=== PATIENT | female | born 1930 | race Caucasian/White ===

== ENCOUNTER 2017-11-12 20:12 | Emergency (ER) | payer MEDICARE, BC ==
[~2017-11-12] VITALS: Ht 154.9 cm; Wt 59.1 kg
[2017-11-12 20:16] VITALS: TEMP 97.5
[2017-11-12 20:41] LABS: BASO # 0.1 (0.0-0.2); EOS # 0.6 (0.0-0.7); EOS % 5.8 % (0-4.0); GRAN # 4.7 (1.4-6.5); GRAN % 42.7 % (42.2-75.2); HEMATOCRIT 43.4 % (37.0-47.0); HEMOGLOBIN 15.2 g/dl (12.5-16.0); LYMPH # 4.2 (1.2-3.4); LYMPH % 37.9 % (20.0-51.0); MEAN CELL VOLUME 95 fl (80.0-100.0); MEAN CORPUSCULAR HEMOGLOBIN 33 pg (27.0-31.0); MEAN CORPUSCULAR HGB CONC 35 g/dl (33.0-37.0); MEAN PLATELET VOLUME 8.8 fl (7.4-10.4); MONO # 1.4 (0.1-0.6); MONO % 12.4 % (1.7-9.3); PLATELET COUNT 215 K/mm3 (130-400); RED BLOOD COUNT 4.58 M/mm3 (4.10-5.30)
[2017-11-12 20:46] LABS: PROTHROMBIN TIME 23.9 SECONDS (9.7-12.8)
[2017-11-12 22:00] VITALS: BP 114/67; PULSE 106
== END 2017-11-12 22:10 | disposition home or self-care (01) ==
LOC: COL.ER 20:12
PROVIDERS: Family Medicine
DX: S06.320A Contusion and laceration of left cerebrum without loss of consciousness, initial encounter (principal); S01.81XA Laceration without foreign body of other part of head, initial encounter; I48.91 Unspecified atrial fibrillation; Z87.01 Personal history of pneumonia (recurrent); W10.9XXA Fall (on) (from) unspecified stairs and steps, initial encounter; W22.8XXA Striking against or struck by other objects, initial encounter